=== PATIENT | male | born 1955 | race Caucasian/White ===

== ENCOUNTER 2017-10-30 14:09 | Inpatient (IN) | payer BC, OTHER ==
[2017-10-30] MEDS ORDERED: Labetalol HCl 100 MG/20 ML VIAL SLOW IVP PRN (15:54)
[2017-10-30] MEDS ORDERED: Docusate 100 MG CAP PO PRN (15:54)
[2017-10-30] MEDS ORDERED: Acetaminophen 325 MG TAB PO PRN (15:54)
[2017-10-30] MEDS ORDERED: Gadobenate Dimeglumine 529 MG/1 ML (20ML VIAL) ONE (16:25)
[2017-10-30 16:36] VITALS: BMI 25.7
[2017-10-30] MEDS: Dexamethasone 4 mg/ml Vial SLOW IVP SCH ×2 (18:22→23:54)
--- NOTE | 2017-10-30 19:20 | MRI ---
MRI BRAIN WITH AND WITHOUT CONTRAST: Indication: Intracerebral mass. Brain Lab protocol. FINDINGS: There is a thick walled irregularly enhancing mass of the intraaxial aspect of the right parietal lob e, which measures 3.5 cm transverse x 3.5 cm craniocaudal. There are satellite enhancing nodular foci within a prominent sized region of vasogenic edema involving the mid posterior aspect of the right c erebral hemisphere. There are punctate interspersed areas of stippled susceptibility artifact indicat ing a component of punctate calcification and/or hemosiderin deposition. There is associated mass eff ect and subfalcine herniation that as has been depicted on the comparison head CT performed earlier s patricio date. There is compression upon and leftward shift of the ventricular system. There is asymmetry of the left temporal horn indicating a component of developing ventricular entrapment. Superimposed w kassi matter signal alteration indicates mild chronic microvascular ischemic disease. There is approxi mately 5 mm of midline shift. IMPRESSION: 1. Large, peripherally-enhancing, necrotic intraaxial mass at the posterior right cerebral hemisphere with satellite nodularity and a large region of vasogenic edema favoring primary malignancy such as glioblastoma multiforme, with satellite metastases. 2. There is associated mass effect and leftward subfalcine herniation again demonstrated. POS: [facility]
[2017-10-30] MEDS: Famotidine/PF 20 mg/2ml Vial SLOW IVP SCH (20:13)
--- NOTE | 2017-10-30 20:19 | HP ---
HISTORY OF PRESENT ILLNESS: Mr. Collins is a 61-year-old man who was transferred to [facility] from [place] at [place] for roughly a week and a half to two weeks worth of gradually p rogressive altered mental status and confusion. According to his , he has been giddy and hyperac tive, but also forgetful and does not have clearcut . The patient himself actually also recogni zes this and is very alert and active, interactive in a conversation. This was all in the setting of a CT scan that was performed at [place] that shows an extensive amount of vasogenic edema within t he right cerebral hemisphere encompassing the left temporal lobe, parietal lobe, and frontal lobe wit h some mild extension into the occipital lobe as well. There is minimal midline shift associated chace suring roughly 3-4 mm with some effacement of the right lateral ventricle. He otherwise is asymptoma tic. PAST MEDICAL HISTORY: Insignificant for any major medical issue. CURRENT MEDICATIONS: He has no current medications. ALLERGIES: No known drug allergies. PAST SURGICAL HISTORY: Right shoulder repair and herniorrhaphy. REVIEW OF SYSTEMS: Negative other than what has already been specified in the HPI. PHYSICAL EXAMINATION: VITAL SIGNS: Blood pressure 125/89, pulse 74, respirations 16, temperature 98.6, O2 saturation 96 on room air. GENERAL: The patient is alert and oriented x3. He understands the situation that he is in. He und erstands his name, his date of , who his is, and where he is presently situated. He is not aware of what the date or day of the week it is, but does know the month. NEUROLOGIC: Eyes: Pupils are equally round and reactive to light. Extraocular movements are intact . He does have some facial asymmetry with particular focus around the left orifice and he has some a symmetric speech, but does not slur. His smile is very minimally asymmetric with the left being a li ttle droopier than the right. Otherwise, his cranial nerve VII is intact. Cranial nerve V is intact . He has equal and 5/5 strength in the upper and lower extremities. No other sensory disturbance is noted. ASSESSMENT: Altered mental status and intracerebral edema and likely mass. PLAN: At this time, we will admit the patient to the stroke unit and involve Oncology and the [facility] alist Service. We will also order an MRI with and without contrast of the brain. We will start on 4 mg of Decadron q.6 hours with GI prophylaxis in the form of famotidine 20 mg b.i.d. and we will perf orm neuro checks every 6 hours. I discussed with the family at bedside. This is very unlikely a str tom as they were potentially told in the emergency department and more than likely represents some ty pe of intra-cerebral mass; of what type is hard to tell until we get the results of the MRI scan. Af ter we obtain that this evening, we will be able to better plan proper intervention and treatment. Cindy dominguez understanding of this is in very good spirits. We will follow up in the morning once the MRI i s performed and have further discussion about prognosis and planning going forward.
[2017-10-31 05:04] LABS: #Monocytes 0.4 thou/uL (0.11-0.59); #Neutrophils 11.6 thou/uL (1.40-6.50); %Basophils 0.1 % (0.0-1.0); %Eosinophils 0.1 % (0.0-10.0); %Monocytes 2.8 % (0.0-10.0); Hemoglobin 15.3 g/dL (14.0-18.0); Mean Corpuscular HGB CONC 32.2 g/dL (32.0-36.0); Mean Corpuscular Hemoglobin 31.3 pg (27.0-31.0); Mean Platelet Volume 8.3 fL (7.4-10.4); Platelet Count 214 thou/uL (130-400); RBC Distribution Width 11.6 % (11.5-14.5)
[2017-10-31 05:24] LABS: Anion Gap 15 mmol/L (10-20); BUN (Urea Nitrogen) 23 mg/dL (8.4-25.7); Calc. Creatinine Clearance 65 mL/min (70-130); Calcium 10.1 mg/dL (7.8-10.44); Carbon Dioxide 22 mmol/L (23-31); Chloride 105 mmol/L (98-107); Estimated GFR-MDRD 63; Glucose 154 mg/dL (80-115); Potassium 4.7 mmol/L (3.5-5.1); Sodium 137 mmol/L (136-145)
[2017-10-31] MEDS: Dexamethasone 4 mg/ml Vial SLOW IVP SCH ×3 (06:19→17:58)
[2017-10-31] MEDS: Famotidine/PF 20 mg/2ml Vial SLOW IVP SCH ×2 (09:58→20:41)
--- NOTE | 2017-10-31 10:20 | PRG ---
DATE OF SERVICE: 10/31/2017 Mr. Collins this morning appears to still be doing well. His overall presentation is stable to yester day where he essentially was very well-appearing and interactive and oriented to situation, time, abdirahman ce, date and location. The purpose of our visit this morning is to discuss MRI findings which he had performed last night. MRI of the brain with and without contrast reveals a very large necrotic, per ipherally enhancing mass in the right parietal lobe. There is one large mass and then a smaller mass more cranial to that. This is all causing a significant amount of vasogenic edema in the temporal, parietal and frontal lobes with some extension into the occipital lobe on the right. I discussed wit h the and the patient that this likely represents a malignant tumor that we will need to plan r esection. They are on board for this. I did discuss with them that this would be a large open resec tion of the brain mass, that we will also send off tissue biopsies to confirm diagnoses and at that p oint have a better idea of how to treat with the assistance and direction of our Oncology colleagues. There emotional understanding of this. At this point, we will continue the steroids and I will dis cuss with Dr. Marie the planning in terms of setting a date for tumor resection this week, either as early as tomorrow, but likely Monday. We will eklutna back to confirm this later today.
--- NOTE | 2017-10-31 15:37 | CON ---
DATE OF SERVICE: 10/31/2017 REASON FOR CONSULTATION: Brain mass. HISTORY OF PRESENT ILLNESS: Mr. Collins is a very pleasant 62-year-old male who over the past 2 weeks has had dizziness, confusion, and altered mental status. It significantly worsened over the weekend, so he presented to [facility] for evaluation. A CT scan of the brain was performed , which showed a large area of vasogenic edema involving the right posterior frontal, right parietal, right temporal and right occipital lobes. He then had a CT angio of the chest which was negative for pulmonary embolus. It did show a small 4 mm pulmonary nodule in the right lower lobe. There were no lesions seen in the adrenals, pancreas, spleen or liver. He was transferred to this facility for further evaluation and Neurosurgery was consulted and ordered an MRI of the brain that showed a large peripherally enhancing necrotic intraaxial mass at the posterior right cerebral hemisphere. There was a small satellite nodule. He had a large area of vasogenic edema. The MRI favored a primary brain malignancy. The patient was started on IV steroids. He has some difficulty with basic tasks including addition, he was unable to make his bed, the other day he was lost in his own backyard. He has some mild facial drooping , but no significant weakness, no blurred vision. He has no history of smoking or alcohol use. PAST MEDICAL HISTORY: None. PAST SURGICAL HISTORY: Right shoulder repair and hernia repair. ALLERGIES: No known drug allergies. HOME MEDICATIONS: None. REVIEW OF SYSTEMS: A 12 point review of systems is negative except for noted in HPI. PHYSICAL EXAMINATION: VITAL SIGNS: Temperature is 98.6, pulse is 86, respiratory rate 20, BP is 125/ 82, he is 94% on room air. GENERAL: Well-developed, well-nourished male in no acute distress. HEENT: Normocephalic, atraumatic. Pupils are equal and reactive to light. He does have a slight left facial droop. CARDIOVASCULAR: Regular rate and rhythm. LUNGS: Clear. ABDOMEN: Soft, nontender, bowel sounds are positive. EXTREMITIES: There is no clubbing, cyanosis or edema. SKIN: No rash. HEMATOLOGIC: There is no petechia or purpura. NEUROLOGIC: With some disorientation, but no focal weakness. PSYCHIATRIC: He is alert and oriented and appropriate. PERTINENT LABORATORY DATA AND X-RAYS: Current WBCs are 13.0, hemoglobin 15.3, hematocrit 47.5, platelet count is 214,000, 89% neutrophils, 8% lymphocytes. Sodium is 137, potassium 4.7, chloride 105, CO2 is 22, BUN is 23, creatinine 1.17, calcium is 10.1. Radiology per HPI. IMPRESSION: 1. Necrotic brain lesion of the right cerebral hemisphere with satellite mass. 2. Vasogenic edema. 3. Small 4 cm pulmonary nodule of the right lower lobe of unknown significance. DISCUSSION: The patient has been started on IV steroids and his family feels that he has had improvement of his mentation. Neurosurgery is planning tumor resection for tissue biopsy tomorrow. I discussed with the family the usual course of treatment options for primary brain malignancy versus metastatic disease. Further recommendations will be based on the tissue biopsy results. We will follow his hospital course remotely. CHRISTINA
--- NOTE | 2017-10-31 20:04 | CON ---
DATE OF CONSULTATION: 10/31/2017. CONSULTATION/HISTORY AND PHYSICAL REASON FOR CONSULTATION: Mr. Collins is a 62-year-old gentleman who appears to have been diagnosed wi th an aggressive primary brain tumor. I was asked to see him to discuss his treatment options. HISTORY OF PRESENT ILLNESS: Mr. Collins reports that for about the past week, he has had some cogniti ve problems as well as leaning to his left. This also was giving him some difficulty with driving. The confusion apparently has gotten much worse since Monday. He was seen in the emergency room in [facility] and a CT scan of the head was performed, which showed a right parietal mass with significant vasogenic edema. He also had a CT angiogram, which showed a less than 4-mm pulmonary nodule in the r ight lower lobe, but no evidence of adenopathy or primary lesion or metastatic disease in the liver. He was started on steroids and was transferred from [place] to [place] for workup and evaluatio n. He has been seen by Dr. Marie in Neurosurgery and Tammie Colunga in Oncology and plan is for him to undergo surgical resection. He does feel that his thinking has improved since being started on the steroids. He has not been having headaches or any nausea or vomiting. He has no focal weakness or n umbness. He has been having some lightheadedness. He has no recent weight loss. PAST MEDICAL HISTORY: 1. Status post right shoulder surgery. 2. Status post right inguinal hernia repair. 3. Denies other medical or surgical problems. MEDICATIONS: Decadron and Pepcid. ALLERGIES: No known medical allergies. SOCIAL HISTORY: He lives with his in [place], [place]. He has no cigarette or alcohol use. 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 FAMILY HISTORY: His dad at age 57 of pancreatic cancer. His mother at age 74 from lung ca ncer. He has a brother with COPD. There is no other family history of malignancy. REVIEW OF SYSTEMS: Twelve-system review of systems is otherwise negative. PHYSICAL EXAMINATION: VITAL SIGNS: Height 5 feet 6 inches, weight 157 pounds, blood pressure 125/82, pulse is 86, respirat ions 20, temperature is 98.6, O2 saturation 95%. GENERAL: He is alert and oriented and in no apparent distress. He is well developed and well nouris hed. Karnofsky performance status is 90%. EYES: Pupils equal, round, and reactive to light. Extraocular movements are intact. ENT: Oral cavity and oropharynx normal without lesion or erythema. Palate elevates symmetrically. Gingiva is intact. NECK: Supple without cervical or supraclavicular adenopathy. No thyromegaly. Larynx is midline. LUNGS: Breathing nonlabored. Clear to auscultation and percussion. HEART: Regular rate and rhythm without murmur. No lower extremity edema. BACK: No tenderness on fist percussion of his spine. LYMPHATICS: No axillary or inguinal adenopathy. ABDOMEN: Soft, nontender, nondistended without mass or hepatosplenomegaly. Liver percussed is stevie l size. SKIN: Without rash or purpura. NEUROLOGIC: Cranial nerves II-XII grossly intact. Motor strength is 5/5 in both upper and lower ext remities in all muscle groups tested. Reflexes are normal and symmetrical. Gait was not tested. LABORATORY DATA: CBC revealed a white blood count of 13,000 with hemoglobin of 15.3, hematocrit of 4 7.5, platelet count of 214,000. Chemistry group revealed a creatinine of 1.17. Electrolytes were no rmal. RADIOLOGIC DATA: MRI of the brain was personally reviewed. He has a contrast-enhancing mass, which appears to have a necrotic center in the right parietal lobe measuring at least 3.5 cm. There are so me satellite enhancing foci near this mass. There is extensive surrounding vasogenic edema. There i s midline shift. CT scan of the chest from [place] was able to be personally reviewed. He has a less than 4-mm nodu le in the right lower lobe, which is likely of no significance. There is no evidence of adenopathy o r primary malignant lesion. There was no evidence of liver metastasis. ASSESSMENT: Mr. Collins is a 62-year-old gentleman who likely has a malignant primary brain tumor. I suspect this is going to be a glioblastoma. PLAN: I agree with the initiation of steroids as has been done. I also agree with the plan by Neuro surgery to take him to the operating room for maximum surgical resection. This will allow us to get tissue diagnosis. I did discuss this with Mr. Collins and with his . We discussed the importance of obtaining tissue diagnosis. I also explained to them that this would likely be a primary brain t umor. We discussed that if it was a malignant primary brain tumor that likely it would be recommende d that he be treated with chemotherapy and radiation after he has healed from his surgery. I have br benjamin discussed the logistics, benefits, and risks of radiation therapy. We also briefly discussed t he side effects including, but not limited to skin reaction, fatigue, lower blood counts, hair loss w hich may be permanent, headache, nausea, vomiting, and small risk of damage to the normal brain. Aga in, we cannot make for certain a treatment plan until after tissue diagnosis is obtained, but I suspe ct that that will be the likely treatment plan recommended. Time was taken to answer all their quest ions regarding radiation. They were somewhat familiar with radiation as his has been treated fo r breast cancer in the past. We will make final recommendations either later in his hospitalization when tissue diagnosis is obtained or as an outpatient if he goes home prior to us obtaining the final pathology report. Thank you for this interesting consultation.
[2017-11-01] MEDS: Dexamethasone 4 mg/ml Vial SLOW IVP SCH ×4 (00:26→17:55)
--- NOTE | 2017-11-01 08:10 | PRG ---
DATE OF SERVICE: 11/01/2017 Mr. Collins is a 62-year-old gentleman, who was transferred in from [facility] 2 days ago with alter ed mental status. He had a noncontrast CT, which showed edema within the brain and a suggestion of u nderlying lesion. After arrival at [facility], he had an MRI scan performed with contrast, which reveals at least 2 contrast-enhancing lesions within the right posterior temporoparietal region . These have the imaging characteristics of what is likely to be multifocal GBM. He has associated perilesional edema with also associated midline shift. Since admission to the hospital, he has been placed on steroids with overall improvement in his mental status. He is able to ambulate independent ly and carry on a conversation and is quite alert and oriented. He has been seen by our Oncology colleagues. I met with him and his this morning. I discussed with them again the imaging, the diagnosis, and the planned surgical procedure, which will be that of a right parietal craniotomy with subtotal resection of tumor for the purposes of decompression and d iagnosis. He will need adjuvant therapy thereafter assuming this is a high-grade glioma. The plan following surgery will be admission to the ICU. Assuming he is stable there, we can conside r transition to the floor thereafter. I reviewed with the patient and his in detail all the ris ks, benefits, and alternatives to the surgical treatment. I answered all of their questions. They u nderstand and provided informed consent.
[2017-11-01] MEDS ORDERED: Lidocaine 1% w/Epinephrine 1:200K 30 ML VIAL ONE (08:28)
[2017-11-01] MEDS: Famotidine/PF 20 mg/2ml Vial SLOW IVP SCH ×2 (08:43→19:58)
[2017-11-01] MEDS ORDERED: CEFAZOLIN/Water 2 GM/20 ML SYRINGE ONE (09:40)
[2017-11-01] MEDS ORDERED: Thrombin 5000 UNITS/5 ML VIAL ONE (09:43)
[2017-11-01] MEDS ORDERED: Mannitol 12.5 GM/50 ML ONE (09:43)
[2017-11-01] MEDS ORDERED: Midazolam HCl 2 mg/2 ml Vial ONE (09:49)
[2017-11-01] MEDS ORDERED: Bacitracin Zinc Ointment 30 gm TUBE ONE (10:01)
[2017-11-01] MEDS ORDERED: Fentanyl 250 MCG/5 ML VIAL ONE (10:08)
[2017-11-01] MEDS ORDERED: Mag-Al 1200 mg/1200 mg/30 ML UDCUP PO PRN (13:09)
[2017-11-01] MEDS ORDERED: Ondansetron HCl/PF 4 MG/2 ML Vial IVP PRN (13:09)
[2017-11-01] MEDS ORDERED: diphenhydrAMINE 50 MG/ML VIAL IVP PRN (13:09)
--- NOTE | 2017-11-01 13:31 | OP ---
DATE OF PROCEDURE: 11/01/2017 SURGEON: Jeff Marie M.D. HONEY EXTRACTOR: Lux Eli PA-C. INDICATION: Obtain diagnosis and prevent neurologic decline. PREOPERATIVE DIAGNOSIS: Right parietal intracranial lesion. ANESTHESIA: General. PROCEDURE: Right parietal craniotomy with resection of tumor. TECHNIQUE: The patient was brought into the operating room and placed under general anesthesia. He was placed on the table in the supine position. His head was turned sharply to a lesser exposure of the right occiput. A large linear incision was planned over the midline portion of the tumor which w as placed based on anatomic landmarks. The area was infiltrated with lidocaine. The area was preppe d and draped in the usual sterile fashion. Following an appropriate operative pause, the incision wa s created. A self-retaining retractor was placed. Two bur holes were placed. Bur holes were then c onnected using a drill bit and a craniotomy bone flap was removed. A large cruciate incision was abdirahman bear within the dura and the dural leaflets were reflected toward the periphery. He had a grossly abn ormal tissue noted right away right within the center of the dural opening. This was carefully resec ashley using cautery and suction. There were several pieces of tumor sent off for pathologic analysis. Much of this tumor was necrotic and a substantial portion of it was also fibrotic. During the cours e of the procedure. I resected the tissue which looked clearly abnormal up until I reached normal tu mor margins. There was a second satellite tumor deeper which I did not approach. The wound was irri gated. Hemostasis was maintained throughout. The dura was then closed in a primary fashion. The michael ne was returned and affixed with a 3-point fixation. The incision was closed in anatomic layers and a pressure dressing was applied. There were no known procedural complications.
[2017-11-01] MEDS ORDERED: Morphine 2 MG/ML SYRINGE SLOW IVP PRN (13:47)
[2017-11-01] MEDS: Sodium Chloride 0.9% 1,000 ML IV SCH (15:00)
[2017-11-01] MEDS ORDERED: PHENYLEPHRINE-NS 100 MCG/ML 10 ML SYRINGE ONE (15:36)
[2017-11-01] MEDS ORDERED: Ondansetron HCl/PF 4 MG/2 ML Vial ONE (15:36)
[2017-11-01] MEDS ORDERED: Glycopyrrolate 0.2 MG/ML 5 ML SYRINGE ONE (15:36)
[2017-11-01] MEDS ORDERED: Propofol 200 MG/20 ML VIAL ONE (15:36)
[2017-11-01] MEDS ORDERED: Lidocaine 1% PF 5 ML VIAL ONE (15:36)
[2017-11-01] MEDS ORDERED: ePHEDrine/0.9% NaCl/PF SYRINGE 50 mg/10 ml ONE (15:36)
[2017-11-01] MEDS: HYDROcodone/Acetaminophen 7.5/325 mg Tablet PO PRN ×2 (16:27→20:25)
[2017-11-01] MEDS: CEFAZOLIN/Water 2 GM/20 ML SYRINGE SLOW IVP SCH (17:55)
--- NOTE | 2017-11-02 00:30 | CON ---
DATE OF CONSULTATION: 11/01/2017 REASON FOR CONSULTATION/HISTORY OF PRESENT ILLNESS: Dennis is a 62-year-old very pleasant gentleman who developed confusion and mental status change. A CT MRI showed a large right parietal mass tumor. He underwent craniotomy today. He is now in the ICU postop. is at the bedside. Patient postop is awake, alert, appropriate, answers all questions without a ny issues. Nonsmoker. Drinks very occasionally. No prior history of any problems of pneumonia, TB or asthma. No history of seizure activity. PAST MEDICAL HISTORY: Unremarkable for any major medical problems. PAST SURGICAL HISTORY: Hernia and shoulder. SOCIAL/FAMILY HISTORY: He is a mechanical systems control engineer. REVIEW OF SYSTEMS: Otherwise, 10-point negative. PHYSICAL EXAMINATION: VITAL SIGNS: Sats are 95, pulse 57, blood pressure 114/73, respiration rate 18. CHEST: No wheezing or crackles. CARDIAC: Normal S1, S2. ABDOMEN: Soft, no masses. LABORATORY DATA: Electrolytes were normal. White count 13, H and H 15 and 43, platelet count is nor mal. His noted MRI shows a large necrotic right cerebral hemisphere vaogenic mass, probably glioblas manju. He had a CT done apparently of his chest in [place], which apparently showed a single lesion there, which we were unable to access at this stage. IMPRESSION: 1. Status post craniotomy for primary central nervous system tumor, probably a glioblastoma. 2. Nonsmoker. 3. Abnormal CT of the chest, right lower lung 4-mm nodule, probably prior lung disease. PLAN: Continue Decadron, supportive care. We will follow while in the ICU. Consultation note is noted.
[2017-11-02] MEDS: Dexamethasone 4 mg/ml Vial SLOW IVP SCH ×4 (00:32→17:28)
[2017-11-02] MEDS: CEFAZOLIN/Water 2 GM/20 ML SYRINGE SLOW IVP SCH (01:06)
[2017-11-02] MEDS: Sodium Chloride 0.9% 1,000 ML IV SCH ×3 (01:07→17:32)
[2017-11-02] MEDS: HYDROcodone/Acetaminophen 7.5/325 mg Tablet PO PRN ×2 (05:24→10:28)
--- NOTE | 2017-11-02 08:55 | PRG ---
DATE OF SERVICE: 11/02/2017 SUBJECTIVE: Mr. Jeff Collins is status post craniotomy, doing well except for headache. OBJECTIVE: VITAL SIGNS: Blood pressure 100/70, pulse 78, respiration 18, sats 96% on room air. CHEST: No wheezing. CARDIAC: Normal S1, S2. No gallops. ABDOMEN: Soft, no masses. ASSESSMENT: Status post craniotomy, glioblastoma, awaiting final path. PLAN: Continue Decadron, supportive care, PT. We will follow while in the ICU.
[2017-11-02] MEDS: Famotidine/PF 20 mg/2ml Vial SLOW IVP SCH ×2 (09:07→20:43)
[2017-11-02] MEDS ORDERED: Acetaminophen/Codeine 30-300mg Tablet PO PRN ×2 (12:34)
[2017-11-03] MEDS: Dexamethasone 4 mg/ml Vial SLOW IVP SCH ×3 (00:07→12:28)
[2017-11-03 07:48] VITALS: BP 120/81; TEMP 98.9
[2017-11-03] MEDS: Famotidine/PF 20 mg/2ml Vial SLOW IVP SCH (10:07)
== END 2017-11-03 14:24 | disposition home or self-care (01) | DRG 25 ==
LOC: ERS 14:09 → 2SE 14:44 → CCU 11-01 09:17 → SURG A 11-02 14:38
PROVIDERS: ADMIT Neurological Surgery; ATTEND Neurological Surgery
PROC: B030ZZZ Magnetic Resonance Imaging (MRI) of Brain (ICD-10-PCS; 2017-10-30)
PROC: 00B20ZZ Excision of Dura Mater, Open Approach (ICD-10-PCS; principal; 2017-11-01)
DX: C70.0 Malignant neoplasm of cerebral meninges (principal); G93.6 Cerebral edema; Z80.0 Family history of malignant neoplasm of digestive organs; Z80.1 Family history of malignant neoplasm of trachea, bronchus and lung; Z83.6 Family history of other diseases of the respiratory system
CPT/HCPCS: 36415; 70553; 80048; 82565; 85025; 86850; 86900; 86901; 88307; 88341; 88342; 88360; 90471; 90732; 99285; A9579; C1713; G0009; G8978-GP-CJ; G8979-GP-CH; G8987-GO-CJ; G8988-GO-CI; J1100; J1165; J1642; J2001; J2150; J2250; J2270; J2405; J2704; J3010; J7050; Q2009; S0028

== ENCOUNTER 2018-02-19 09:06 | Outpatient (CLI) | payer BC ==
--- NOTE | 2018-02-19 11:44 | MRI ---
MRI BRAIN WITH AND WITHOUT CONTRAST: Technique: Multiplanar, multisequential imaging of the brain obtained. Post contrast images were obta ined with 15 cc of MultiHance. Order status malignant neoplasm of parietal lobe. Indications: Follow up glioma. Post op. Comparison: 11-22-17 FINDINGS: Post-operative changes are again noted in the right posterotemporal parietal lobe region. Echogenic e mckay in this region has increased since the prior study. There is a small cavity present at the prior operative site. The cavity continues to exhibit ring enhancement, similar to the prior study. The ri ng enhancing operative cavity measures 2.6 cm AP dimension x up to 2.8 cm width, not significantly ch anged from the prior exam. Just superior to the operative defect is a ring enhancing mass in the right parietal lobe which was n oted previously. This region is slightly increased in size measuring 1.0 x 1.3 cm today. (Previously measured 1.0 x 0.9 cm). Continuing superiorly, there is another ring enhancing lesion in the posterior more superior right pa rietal lobe which has significantly increased in size today, now measuring 1.7 cm greatest dimension x 1.0 cm AP dimension. Previously this lesion measured 0.8 x 0.6 cm. Increasing edema surrounds both of these lesions today when compared to the prior study. Numerous white matter foci are again seen, consistent with chronic ischemic change, stable. Ventricle s remain normal size and position. On diffuse images, both of the enhancing foci noted above show significant restricted diffusion today which also represents a change from the prior study. IMPRESSION: 1. There continues to be ring enhancement at the operative defect in the right parietal lobe which do es not appear significantly changed. However, the two other enhancing lesions in the right parietal l obe superior to the operative cavity have both increased in size and there is increasing edema in the right parietal lobe today when compared to prior study. POS: [facility]
[2018-02-19] MEDS ORDERED: Gadobenate Dimeglumine 529 MG/1 ML (20ML VIAL) ONE (13:04)
== END 2018-02-19 09:07 | disposition home or self-care (01) ==
LOC: TBSIIMAG 09:06
PROVIDERS: ATTEND Internal Medicine Hematology & Oncology
DX: C71.3 Malignant neoplasm of parietal lobe (principal); G93.6 Cerebral edema
CPT/HCPCS: 70553; 82565; A9579

== ENCOUNTER 2018-07-05 08:49 | Outpatient (CLI) | payer BC ==
[2018-07-05] MEDS ORDERED: Gadobenate Dimeglumine 529 MG/1 ML (20ML VIAL) ONE (14:56)
--- NOTE | 2018-07-06 09:26 | MRI ---
MRI OF THE BRAIN WITHOUT AND WITH CONTRAST: Date: 07/05/18 COMPARISON: 02/19/18. HISTORY: Malignant neoplasm of the parietal lobe, status post resection. TECHNIQUE: Multiplanar, multisequence MR images were obtained of the brain without and with IV contrast. FINDINGS: Postsurgical changes are seen in the right parietal lobe. There is an operative cavity with rim-like enhancement, which is stable in size. There are scattered foci of high T2/FLAIR signal in the subcort ical and periventricular white matter, likely secondary to small vessel ischemic disease. The two pre viously seen areas of enhancement superior to the biopsy cavity and the right parietal lobe have cont inued to increase in size. The largest now measures 3.1 cm in greatest dimension. The smaller of the two now measures 1.5 cm in greatest dimension. There is continued increase in edema surrounding these two lesions. There is a new third area of enhancement in the inferior right frontal lobe adjacent to the sylvian fissure. This measures approximately 8.0 mm in greatest dimension and contains a tail th at extends along the sulcus and may represent a small amount of meningeal spread. A small linear area of enhancement is seen in the left periventricular white matter measuring 2.0 mm in thickness and ap proximately 4.0 mm in length. This was not seen on the prior examination and is nonspecific. There is no evidence of hydrocephalus, intracranial hemorrhage, or extra-axial fluid collection. The expected flow-voids are present. The corpus callosum, pituitary, and craniocervical junction are unre markable. IMPRESSION: 1. Postsurgical resection of a parietal lesion with enhancement of the cavity surrounding the operat alcon bed. 2. Continued enlargement of right parietal lobe lesions with surrounding vasogenic edema. 3. Two new areas of enhancement. One is in the right frontal lobe and the other is in the left periv entricular white matter. These are nonspecific, but could potentially represent metastatic disease. POS: SOLOMON
== END 2018-07-05 08:50 | disposition home or self-care (01) ==
LOC: MRI 08:49
PROVIDERS: ATTEND Internal Medicine Hematology & Oncology
DX: C71.3 Malignant neoplasm of parietal lobe (principal); R56.9 Unspecified convulsions; G93.6 Cerebral edema; G93.9 Disorder of brain, unspecified; Z98.890 Other specified postprocedural states
CPT/HCPCS: 70553; A9579

== ENCOUNTER 2018-09-17 09:21 | Outpatient (CLI) | payer BC ==
[2018-09-17] MEDS ORDERED: Magnevist 469MG/ML 20 ML VIAL ONE (10:19)
--- NOTE | 2018-09-17 16:02 | MRI ---
MRI BRAIN WITH AND WITHOUT CONTRAST: DATE: 09/17/18 HISTORY: 63-year-old male status post surgical resection of malignant neoplasm of parietal lobe, C71.3, report edly a glioblastoma. Follow-up. COMPARISON: 07/05/18. TECHNIQUE: Multiple sequences obtained in axial, sagittal, and coronal planes; pre and post IV injection of gado linium-based contrast agent: 15 mL MultiHance. FINDINGS: Right-sided craniotomy changes are again noted. The previously demonstrated lesion of the right poste rior temporal-parietal junction has decreased in size, has significantly less heterogeneous enhanceme nt than before, and causes less vasogenic edema in the surrounding brain parenchyma than before. Its current dimensions are approximately 2 x 2.5 x 1.5 cm. Whereas previously, the vasogenic edema was effacing the trigone and occipital horn of the right late ral ventricle, and causing mass effect with mild right to left midline shift of the septum pellucidum ; now there is mild ex vacuo dilation of the trigone and occipital horn of the right lateral ventricl e, and there is now reverse shift of the septum pellucidum on an ex vacuo basis from left to right, a distance of approximately 0.3 cm. There is diffuse mild ventriculomegaly due to diffuse brain parenc hymal volume loss. Previously, there were at least three right hemispheric satellite neoplastic tumor nodules. The one t hat was previously approximately 0.5 cm in the right lateral suprasylvian frontal lobe, is currently slightly smaller, approximately 0.4 cm. However, there is a new satellite nodule of similar size slightly superior and medial to it in the la teral right frontal lobe. The two previously mentioned right parietal lobe tumor lesions have significantly decreased in size a nd enhancement. For example, the more superior parietal lesion measuring approximately 3 x 1.5 x 2 cm , currently measures approximately 2 x 0.6 x 0.7 cm. The one more inferior to that previously measuri ng approximately 1.5 x 1 x 1.5 cm currently measures approximately 1 x 1 x 1 cm. There are three new small enhancing neoplastic tumor nodules in the contralateral left cerebral hemis phere. An approximately 0.9 x 0.6 x 0.6 cm lesion abutting the lateral aspect of the frontal horn of the left lateral ventricle. An approximately 1.5 x 1 x 0.9 cm ill-defined lesion in the central porti on of the left centrum semiovale. A 1.2 x 0.7 x 1 cm lesion slightly more posteriorly in the left cynthia trum semiovale. No evidence of recent intra-axial hemorrhage. Diffuse moderate chronic ischemic white matter changes of the brain. Right mastoid effusion. IMPRESSION: 1. Mixed response to therapy. 2. The main tumor at the surgical bed has decreased in size, exerts less mass effect and vasogenic e mckay, and enhances less than before. 3. The 3 satellite tumor nodules in the right cerebral hemisphere have decreased in size and enhance ment. 4. However, there are 4 new, additional, small, cerebral neoplastic tumor nodules bilaterally now. DEBI Nava POS: WOO
== END 2018-09-17 09:22 | disposition home or self-care (01) ==
LOC: BICMRI 09:21
PROVIDERS: ATTEND Internal Medicine Hematology & Oncology
DX: C71.3 Malignant neoplasm of parietal lobe (principal); C71.0 Malignant neoplasm of cerebrum, except lobes and ventricles; G93.6 Cerebral edema
CPT/HCPCS: 70553; A9579